=== PATIENT | male | born 1990 | race Two or more races ===

== ENCOUNTER 2022-09-23 21:48 | Emergency (ER) | payer MEDICAID, OTHER ==
[~2022-09-23] VITALS: Ht 185.4 cm; Wt 72.0 kg
[2022-09-23] MEDS ORDERED: ETOMIDATE (2MG/ML) 20ML VIAL IV ONE ×2 (21:56→23:15)
[2022-09-23] MEDS ORDERED: ATROPINE SULFATE 1 MG/1 ML VIAL ONE (22:06)
[2022-09-23] MEDS ORDERED: ROCURONIUM 10MG/ML 10ML VIAL IV ONE ×2 (22:16→23:15)
[2022-09-23 23:11] VITALS: BP 183/38
[2022-09-23] MEDS ORDERED: ATROPINE SULF 1 MG/10ml SYR IV ONE (23:15)
[2022-09-23] MEDS ORDERED: MIDAZOLAM DRIP 50 mg/50mL 50 ML IV SCH (23:15)
== END 2022-09-23 23:03 | disposition short-term general hospital (02) ==
LOC: EDBD 21:48 → ER 21:55
DX: S30.92XA Unspecified superficial injury of abdominal wall, initial encounter (principal); S70.922A Unspecified superficial injury of left thigh, initial encounter; W34.09XA Accidental discharge from other specified firearms, initial encounter; Y93.89 Activity, other specified; Y92.89 Other specified places as the place of occurrence of the external cause; Y99.8 Other external cause status
CPT/HCPCS: 31500; 36600; 71045; 74018; 82805; 86920; 96374; 96375; 99291; J0461; P9016; 94002